=== PATIENT | male | born 1960 | race Caucasian/White ===

== ENCOUNTER 2022-01-24 08:32 | Inpatient (IN) | payer BC, SELFPAY ==
[~2022-01-24] VITALS: Ht 172.7 cm; Wt 72.4 kg
[~2022-01-24 08:32] MED LIST: FOLI1TAB PO; LOPR50TA OR; LORA1TAB OR; MULTIVIT; PROP10TAB PO; THERGRAN PO; THIA100T PO
[2022-01-24] MEDS ORDERED: HEPARIN SOD (PORCINE) 5000UNITS/ML 1ML VIAL/SYRINGE SC SCH (09:00)
[2022-01-24] MEDS ORDERED: NS 1,000 ML IV ONE ×2 (09:00→13:40)
[2022-01-24] MEDS: THIAMINE 100 MG TAB PO SCH ×2 (09:00→09:24)
[2022-01-24] MEDS ORDERED: OXAZEPAM 15MG CAP PO ONE (09:00)
[2022-01-24] MEDS: MULTIVITAMINS/MINERALS THERAP 1 TAB PO SCH ×2 (09:00→09:25)
[2022-01-24] MEDS: FOLIC ACID 1MG TAB PO SCH ×2 (09:00→09:25)
[2022-01-24] MEDS ORDERED: LORazepam 2 MG TAB PO PRN (09:05)
[2022-01-24 09:13] LABS: BASO % 0.3 % (0.0-1.0); EOS % 0.3 % (0.0-3.0); HEMOGLOBIN 12.7 g/dl (13.5-17.5); LYMPH # 0.7 10^3/uL (1.5-5.0); LYMPH % 11.3 % (24.0-44.0); MEAN CORPUSCULAR HEMOGLOBIN 33.9 pg (27.0-33.0); MEAN CORPUSCULAR HGB CONC 35.3 g/dl (32.0-36.5); MONO # 0.5 10^3/uL (0.0-0.8); MONO % 8.4 % (2.0-8.0); NEUTROPHILS % 79.1 % (36.0-66.0); PLATELET COUNT, AUTOMATED 142 10^3/uL (150-450); RED BLOOD COUNT 3.75 10^6/uL (4.30-6.10); WHITE BLOOD COUNT 6.3 10^3/uL (4.0-10.0)
[2022-01-24] MEDS ORDERED: levETIRAcetam INJection 1,000 MG in D5W 100 ML IV ONE (09:20)
[2022-01-24 09:24] LABS: INR 0.87
[2022-01-24] MEDS ORDERED: LABETALOL 100MG/20ML VIAL IV STA (09:27)
[2022-01-24] MEDS ORDERED: LORazepam 2 MG/ML VIAL IV STA (09:31)
[2022-01-24 10:13] LABS: ALBUMIN 3.9 G/DL (3.2-5.2); ALT/SGPT 104 U/L (7.0-40); BILIRUBIN,DIRECT 0.4 MG/DL (<0.4); BLOOD UREA NITROGEN < 5 MG/DL (9-23); CALCIUM LEVEL 9.2 MG/DL (8.3-10.6); CARBON DIOXIDE LEVEL 23 MMOL/L (20-31); CHLORIDE LEVEL 88 MMOL/L (98-107); CREATININE FOR GFR 0.49 MG/DL (0.70-1.30); ETHYL ALCOHOL (ETHANOL) 0.025 % (0.000-0.010); GLOMERULAR FILTRATION RATE > 60.0 (>49); GLUCOSE, FASTING 144 MG/DL (74-106); POTASSIUM SERUM 2.2 MMOL/L (3.5-5.1); SODIUM LEVEL 132 MMOL/L (136-145); TOTAL PROTEIN 6.7 G/DL (5.7-8.2)
[2022-01-24] MEDS ORDERED: KCL 10MEQ/100ML SWI (KRUN) 10 MEQ in IV 1 EA IV ONE (10:15)
[2022-01-24 10:32] LABS: MAGNESIUM LEVEL 1.2 MG/DL (1.8-2.4)
[2022-01-24] MEDS ORDERED: MAG SULF 1GM/100ML (MAG RUN) 1 GM in IV 1 EA IV ONE ×2 (10:50→11:35)
[2022-01-24 11:24] LABS: RSV AMPLIFICATION NEGATIVE (NEGATIVE)
[2022-01-24] MEDS: KCL 10MEQ/100ML SWI (KRUN) 10 MEQ in IV 1 EA IV SCH ×6 (11:51→23:35)
[2022-01-24] MEDS ORDERED: ISOVUE-370 76% 100ML VIAL As Ordered ONE (12:08)
[2022-01-24] MEDS ORDERED: GLUCOSE 4GM CHEW TABLET PO PRN (12:15)
[2022-01-24] MEDS ORDERED: GLUCAGON INJ 1MG VIAL SC PRN (12:15)
[2022-01-24] MEDS ORDERED: DEXTROSE 50% 50 ML SYRINGE IV PRN (12:15)
[2022-01-24 13:30] LABS: HEMOGLOBIN A1c 5.1 % (4.0-6.0)
[2022-01-24] MEDS ORDERED: MULTIVITAMIN -ADULT INJECTION 10 ML, THIAMINE INJection 100 MG, FOLIC ACID 1 MG in NS 1... IV ONE (14:00)
[2022-01-24 14:02] LABS: CHOLESTEROL LEVEL 144 MG/DL (<200); CHOLESTEROL RISK RATIO 2.13 (<5); FERRITIN 2314.8 NG/ML (10.5-307.3); HDL CHOLESTEROL 67.5 MG/DL (>40); IRON (FE) 83 UG/DL (65-175); LDL CHOLESTEROL 62.3 MG/DL (<100); NON-HDL-C 77 MG/DL; PERCENT SATURATION 41.3 % (19.7-50.0); TOTAL IRON BINDING CAPACITY 201 UG/DL (250-425); TRIGLYCERIDES LEVEL 71 MG/DL (<150); VITAMIN B12 LEVEL > 2000 PG/ML (211-911)
[2022-01-24 14:14] LABS: FOLATE > 24.00 NG/ML (>5.4)
[2022-01-24] MEDS: LORazepam 2 MG TAB PO PRN (15:25)
[2022-01-24 15:47] VITALS: BP 120/58
[2022-01-24] MEDS ORDERED: VITA200012 PO (15:50)
[2022-01-24] MEDS ORDERED: CVS5000S2 PO (15:50)
[2022-01-24] MEDS ORDERED: B COCAP4 PO (15:50)
[2022-01-24] MEDS ORDERED: MAGN200T PO (15:50)
[2022-01-24] MEDS ORDERED: ZINC50TA14 PO (15:50)
[2022-01-24] MEDS ORDERED: FOLI800C PO (15:50)
[2022-01-24] MEDS ORDERED: SUPECAP7 PO (15:52)
[2022-01-24] MEDS ORDERED: CENT1TAB2 PO (15:52)
[2022-01-24] MEDS ORDERED: MED REC COMMENT (15:54)
[2022-01-24] MEDS ORDERED: HOME MED LIST COMPLETE! XX SCH ×2 (15:55)
[2022-01-24 17:11] LABS: BLOOD UREA NITROGEN 6 MG/DL (9-23); CALCIUM LEVEL 7.5 MG/DL (8.3-10.6); CARBON DIOXIDE LEVEL 26 MMOL/L (20-31); CHLORIDE LEVEL 96 MMOL/L (98-107); CREATININE FOR GFR 0.43 MG/DL (0.70-1.30); GLOMERULAR FILTRATION RATE > 60.0 (>49); GLUCOSE, FASTING 112 MG/DL (74-106); MAGNESIUM LEVEL 1.6 MG/DL (1.8-2.4); PHOSPHORUS LEVEL 1.6 MG/DL (2.4-5.1); POTASSIUM SERUM 2.8 MMOL/L (3.5-5.1); SODIUM LEVEL 133 MMOL/L (136-145)
[2022-01-24 18:29] VITALS: BP 103/63
[2022-01-24] MEDS: MAG SULF 1GM/100ML (MAG RUN) 1 GM in IV 1 EA IV SCH ×2 (18:56→20:59)
[2022-01-24 20:39] VITALS: BP 132/68
[2022-01-24 20:41] VITALS: BP 132/68
[2022-01-24] MEDS ORDERED: THIAMINE 100 MG TAB PO SCH (21:00)
[2022-01-24] MEDS: ENOXAPARIN 40MG/0.4ML SYRINGE (J1650 PER 10MG) SC SCH (21:18)
[2022-01-24 21:22] LABS: APPEARANCE, URINE MANUAL CLEAR (CLEAR); COLOR, URINE MANUAL YELLOW (YELLOW)
[2022-01-24 21:23] LABS: BILIRUBIN, URINE MANUAL NEGATIVE (NEGATIVE); BLOOD URINE MANUAL NEGATIVE (NEGATIVE); GLUCOSE, URINE (UA) MANUAL NEGATIVE (NEGATIVE); KETONE, URINE MANUAL NEGATIVE (NEGATIVE); LEUKOCYTE ESTERASE, URINE MAN NEGATIVE (NEGATIVE); NITRITE, URINE MANUAL NEGATIVE (NEGATIVE); PROTEIN, URINE MANUAL NEGATIVE (NEGATIVE); SPECIFIC GRAVITY,URINE MANUAL 1.005 (1.002-1.035); UROBILINOGEN, URINE MANUAL NORMAL (NORMAL)
[2022-01-24] MEDS: levETIRAcetam INJection 500 MG in D5W MINI-BAG PLUS 100 ML IV SCH (21:25)
[2022-01-24 21:50] LABS: AMPHETAMINES LEVEL URINE NEGATIVE (NEGATIVE); BARBITURATES URINE NEGATIVE (NEGATIVE); BENZODIAZEPINES URINE NEGATIVE (NEGATIVE); CANNABINOIDS URINE NEGATIVE (NEGATIVE); COCAINE METABOLITE URINE NEGATIVE (NEGATIVE); METHADONE URINE NEGATIVE (NEGATIVE); OPIATES URINE NEGATIVE (NEGATIVE); PHENCYCLIDINE URINE NEGATIVE (NEGATIVE)
[2022-01-24] MEDS ORDERED: SODIUM PHOSPHATE INJ 20 MMOL in D5W 250 ML IV ONE (22:00)
[2022-01-25] VITALS (10 sets, daily range): BP systolic 118–170; BP diastolic 68–83
[2022-01-25] MEDS: KCL 10MEQ/100ML SWI (KRUN) 10 MEQ in IV 1 EA IV SCH ×8 (00:50→15:30)
[2022-01-25 08:18] LABS: HEMATOCRIT 31.3 % (42.0-52.0); HEMOGLOBIN 10.8 g/dl (13.5-17.5); MEAN CORPUSCULAR HEMOGLOBIN 34.2 pg (27.0-33.0); MEAN CORPUSCULAR HGB CONC 34.5 g/dl (32.0-36.5); MEAN CORPUSCULAR VOLUME 99.1 fl (80.0-96.0); PLATELET COUNT, AUTOMATED 101 10^3/uL (150-450); RED BLOOD COUNT 3.16 10^6/uL (4.30-6.10); WHITE BLOOD COUNT 5.1 10^3/uL (4.0-10.0)
[2022-01-25] MEDS: levETIRAcetam INJection 500 MG in D5W MINI-BAG PLUS 100 ML IV SCH (08:54)
[2022-01-25] MEDS ORDERED: MULTIVITAMINS/MINERALS THERAP 1 TAB PO SCH (09:00)
[2022-01-25] MEDS ORDERED: FOLIC ACID 1MG TAB PO SCH (09:00)
[2022-01-25 09:10] LABS: BLOOD UREA NITROGEN < 5 MG/DL (9-23); CALCIUM LEVEL 7.4 MG/DL (8.3-10.6); CARBON DIOXIDE LEVEL 28 MMOL/L (20-31); CHLORIDE LEVEL 99 MMOL/L (98-107); CREATININE FOR GFR 0.43 MG/DL (0.70-1.30); GLOMERULAR FILTRATION RATE > 60.0 (>49); GLUCOSE, FASTING 104 MG/DL (74-106); MAGNESIUM LEVEL 1.9 MG/DL (1.8-2.4); PHOSPHORUS LEVEL 2.5 MG/DL (2.4-5.1); POTASSIUM SERUM 2.9 MMOL/L (3.5-5.1); SODIUM LEVEL 136 MMOL/L (136-145)
[2022-01-25] MEDS ORDERED: MAGNESIUM OXIDE 400MG TAB (MAG-OX) PO ONE (09:45)
[2022-01-25] MEDS ORDERED: POTASSIUM CHLORIDE 10MEQ SR TABLET PO ONE ×2 (09:45→17:00)
[2022-01-25] MEDS ORDERED: FOLIC ACID 1MG TAB PO ONE (09:45)
[2022-01-25] MEDS: MULTIVITAMINS/MINERALS THERAP 1 TAB PO SCH (10:51)
[2022-01-25] MEDS: THIAMINE 100 MG TAB PO SCH (10:57)
[2022-01-25 11:11] LABS: HEPATITIS B CORE ANTIBODY IGM NEGATIVE (NEGATIVE); HEPATITIS B SURFACE ANTIGEN NEGATIVE (NEGATIVE); HEPATITIS C VIRUS ABY INDEX 0.1 INDEX (<0.8)
[2022-01-25] MEDS: PROPRANOLOL 10 MG TAB PO SCH ×2 (11:49→20:54)
[2022-01-25 13:11] LABS: BLOOD UREA NITROGEN < 5 MG/DL (9-23); CALCIUM LEVEL 7.6 MG/DL (8.3-10.6); CARBON DIOXIDE LEVEL 28 MMOL/L (20-31); CHLORIDE LEVEL 99 MMOL/L (98-107); CREATININE FOR GFR 0.45 MG/DL (0.70-1.30); GLOMERULAR FILTRATION RATE > 60.0 (>49); GLUCOSE, FASTING 103 MG/DL (74-106); POTASSIUM SERUM 3.1 MMOL/L (3.5-5.1); SODIUM LEVEL 137 MMOL/L (136-145)
[2022-01-25] MEDS: LORazepam 2 MG TAB PO PRN ×3 (20:00→23:30)
[2022-01-25] MEDS: ENOXAPARIN 40MG/0.4ML SYRINGE (J1650 PER 10MG) SC SCH (20:54)
[2022-01-25] MEDS: levETIRAcetam 250MG TABLET (KEPPRA) PO SCH (20:54)
[2022-01-26] VITALS (13 sets, daily range): BP systolic 119–167; BP diastolic 66–93
[2022-01-26] MEDS ORDERED: LORazepam 2 MG/ML VIAL IV STA ×3 (00:48→06:01)
[2022-01-26] MEDS ORDERED: HALOPERIDOL 5MG/ML VIAL (J1630 PER 1) IM STA (03:04)
[2022-01-26] MEDS ORDERED: HALOPERIDOL 5MG/ML VIAL (J1630 PER 1) As Ordered ONE (03:23)
[2022-01-26 04:40] LABS: HEMATOCRIT 31.6 % (42.0-52.0); HEMOGLOBIN 10.9 g/dl (13.5-17.5); MEAN CORPUSCULAR HEMOGLOBIN 34.2 pg (27.0-33.0); MEAN CORPUSCULAR HGB CONC 34.5 g/dl (32.0-36.5); MEAN CORPUSCULAR VOLUME 99.1 fl (80.0-96.0); PLATELET COUNT, AUTOMATED 111 10^3/uL (150-450); RED BLOOD COUNT 3.19 10^6/uL (4.30-6.10); WHITE BLOOD COUNT 5.4 10^3/uL (4.0-10.0)
[2022-01-26 05:57] LABS: BLOOD UREA NITROGEN < 5 MG/DL (9-23); CARBON DIOXIDE LEVEL 28 MMOL/L (20-31); CHLORIDE LEVEL 99 MMOL/L (98-107); CREATININE FOR GFR 0.49 MG/DL (0.70-1.30); GLOMERULAR FILTRATION RATE > 60.0 (>49); GLUCOSE, FASTING 105 MG/DL (74-106); MAGNESIUM LEVEL 1.6 MG/DL (1.8-2.4); PHOSPHORUS LEVEL 1.6 MG/DL (2.4-5.1); POTASSIUM SERUM 3.7 MMOL/L (3.5-5.1); SODIUM LEVEL 136 MMOL/L (136-145)
[2022-01-26 06:16] LABS: ABG BASE EXCESS 2.6 (-2.0-2.0); ABG HCO3 26.1 MEQ/L (22.0-26.0); ABG O2 SATURATION 95.5 % (95.0-99.0); ABG PARTIAL PRESSURE CO2 36.7 mmHg (35.0-45.0); ABG PARTIAL PRESSURE O2 74.9 mmHg (75.0-100.0); ABG STANDARD HCO3 26.7 MEQ/L (22.0-26.0); ABG TOTAL CO2 27.2 MEQ/L (23.0-31.0)
[2022-01-26] MEDS ORDERED: NEUTRA-PHOS 1.5 GM PACKET PO ONE (07:30)
[2022-01-26] MEDS ORDERED: MAG SULF 1GM/100ML (MAG RUN) 1 GM in IV 1 EA IV ONE (08:00)
[2022-01-26] MEDS: levETIRAcetam 250MG TABLET (KEPPRA) PO SCH ×2 (10:18→21:18)
[2022-01-26] MEDS: PROPRANOLOL 10 MG TAB PO SCH ×2 (10:19→21:19)
[2022-01-26] MEDS: MULTIVITAMINS/MINERALS THERAP 1 TAB PO SCH (10:24)
[2022-01-26] MEDS: THIAMINE 100 MG TAB PO SCH (10:24)
[2022-01-26] MEDS: chlordiazePOXIDE 25 MG CAP PO SCH ×3 (11:40→21:18)
[2022-01-26] MEDS: LORazepam 2 MG TAB PO PRN ×2 (17:03→21:19)
[2022-01-26] MEDS: ENOXAPARIN 40MG/0.4ML SYRINGE (J1650 PER 10MG) SC SCH (21:18)
[2022-01-27] VITALS (9 sets, daily range): BP systolic 90–136; BP diastolic 61–90
[2022-01-27] MEDS: LORazepam 2 MG TAB PO PRN (05:27)
[2022-01-27] MEDS: THIAMINE 100 MG TAB PO SCH (08:27)
[2022-01-27] MEDS: levETIRAcetam 250MG TABLET (KEPPRA) PO SCH ×2 (08:27→20:19)
[2022-01-27] MEDS: MULTIVITAMINS/MINERALS THERAP 1 TAB PO SCH (08:27)
[2022-01-27] MEDS: chlordiazePOXIDE 25 MG CAP PO SCH ×3 (08:28→20:18)
[2022-01-27] MEDS: PROPRANOLOL 10 MG TAB PO SCH ×2 (08:28→20:20)
[2022-01-27 08:49] LABS: BASO % 0.4 % (0.0-1.0); EOS # 0.1 10^3/uL (0.0-0.5); EOS % 0.9 % (0.0-3.0); HEMATOCRIT 35.7 % (42.0-52.0); HEMOGLOBIN 12.2 g/dl (13.5-17.5); LYMPH # 0.7 10^3/uL (1.5-5.0); MEAN CORPUSCULAR HEMOGLOBIN 33.8 pg (27.0-33.0); MEAN CORPUSCULAR HGB CONC 34.2 g/dl (32.0-36.5); MEAN CORPUSCULAR VOLUME 98.9 fl (80.0-96.0); MONO # 0.8 10^3/uL (0.0-0.8); MONO % 13.9 % (2.0-8.0); NEUTROPHILS # 3.9 10^3/uL (1.5-8.5); NEUTROPHILS % 71.4 % (36.0-66.0); PLATELET COUNT, AUTOMATED 175 10^3/uL (150-450); RED BLOOD COUNT 3.61 10^6/uL (4.30-6.10); WHITE BLOOD COUNT 5.5 10^3/uL (4.0-10.0)
[2022-01-27 10:00] LABS: BLOOD UREA NITROGEN 6 MG/DL (9-23); CALCIUM LEVEL 8.8 MG/DL (8.3-10.6); CARBON DIOXIDE LEVEL 26 MMOL/L (20-31); CHLORIDE LEVEL 96 MMOL/L (98-107); CREATININE FOR GFR 0.47 MG/DL (0.70-1.30); GLOMERULAR FILTRATION RATE > 60.0 (>49); GLUCOSE, FASTING 126 MG/DL (74-106); MAGNESIUM LEVEL 1.6 MG/DL (1.8-2.4); POTASSIUM SERUM 3.5 MMOL/L (3.5-5.1); SODIUM LEVEL 135 MMOL/L (136-145)
[2022-01-27] MEDS ORDERED: POTASSIUM CHLORIDE 10MEQ SR TABLET PO ONE (12:30)
[2022-01-27] MEDS ORDERED: MAG SULF 1GM/100ML (MAG RUN) 1 GM in IV 1 EA IV ONE (13:00)
[2022-01-27] MEDS: MAGNESIUM GLUCONATE 500 MG TAB PO SCH ×2 (15:05→20:19)
[2022-01-27] MEDS: ENOXAPARIN 40MG/0.4ML SYRINGE (J1650 PER 10MG) SC SCH (20:18)
[2022-01-28] VITALS: BP 115/74
[2022-01-28 04:00] VITALS: BP 107/72
[2022-01-28 04:35] LABS: HEMATOCRIT 35.1 % (42.0-52.0); HEMOGLOBIN 11.9 g/dl (13.5-17.5); MEAN CORPUSCULAR HEMOGLOBIN 33.8 pg (27.0-33.0); MEAN CORPUSCULAR HGB CONC 33.9 g/dl (32.0-36.5); MEAN CORPUSCULAR VOLUME 99.7 fl (80.0-96.0); PLATELET COUNT, AUTOMATED 196 10^3/uL (150-450); RED BLOOD COUNT 3.52 10^6/uL (4.30-6.10); WHITE BLOOD COUNT 4.1 10^3/uL (4.0-10.0)
[2022-01-28 05:19] LABS: PHOSPHORUS LEVEL 5.1 MG/DL (2.4-5.1)
[2022-01-28] MEDS ORDERED: chlordiazePOXIDE 25 MG CAP PO SCH (06:10)
[2022-01-28 07:44] VITALS: BP 114/94
[2022-01-28 07:56] LABS: BLOOD UREA NITROGEN 12 MG/DL (9-23); CALCIUM LEVEL 8.9 MG/DL (8.3-10.6); CARBON DIOXIDE LEVEL 25 MMOL/L (20-31); CHLORIDE LEVEL 96 MMOL/L (98-107); CREATININE FOR GFR 0.66 MG/DL (0.70-1.30); GLOMERULAR FILTRATION RATE > 60.0 (>49); GLUCOSE, FASTING 114 MG/DL (74-106); POTASSIUM SERUM 3.6 MMOL/L (3.5-5.1); SODIUM LEVEL 134 MMOL/L (136-145)
[2022-01-28 08:00] VITALS: BP 114/94
[2022-01-28 08:43] VITALS: BP 114/94
[2022-01-28] MEDS: levETIRAcetam 250MG TABLET (KEPPRA) PO SCH (08:43)
[2022-01-28] MEDS: THIAMINE 100 MG TAB PO SCH (08:43)
[2022-01-28] MEDS: MULTIVITAMINS/MINERALS THERAP 1 TAB PO SCH (08:43)
[2022-01-28] MEDS: PROPRANOLOL 10 MG TAB PO SCH (08:43)
[2022-01-28] MEDS: MAGNESIUM GLUCONATE 500 MG TAB PO SCH (08:43)
[2022-01-28] MEDS ORDERED: ZOLO25TA PO (09:41)
== END 2022-01-28 12:37 | disposition home or self-care (01) | DRG 775 ==
LOC: EDBD 08:32 → M ED 08:32 → M ED INP 12:02 → ENRESERV 14:03 → M PCU 14:46
PROVIDERS: ADMIT Internal Medicine; ATTEND Internal Medicine
DX: F10.231 Alcohol dependence with withdrawal delirium (principal); G92.8 Other toxic encephalopathy; G93.41 Metabolic encephalopathy; D61.818 Other pancytopenia; R16.0 Hepatomegaly, not elsewhere classified; D69.6 Thrombocytopenia, unspecified; E87.20 Acidosis, unspecified; R56.9 Unspecified convulsions; J43.9 Emphysema, unspecified; E83.42 Hypomagnesemia; E83.39 Other disorders of phosphorus metabolism; K76.0 Fatty (change of) liver, not elsewhere classified; E87.6 Hypokalemia; I16.0 Hypertensive urgency; F17.220 Nicotine dependence, chewing tobacco, uncomplicated; R74.01 Elevation of levels of liver transaminase levels; I10 Essential (primary) hypertension; Z20.822 Contact with and (suspected) exposure to COVID-19; Z79.899 Other long term (current) drug therapy

== ENCOUNTER 2022-02-24 06:38 | Emergency (ER) | payer SELFPAY ==
[~2022-02-24] VITALS: Ht 177.8 cm; Wt 69.9 kg
[~2022-02-24 06:38] MED LIST changes: +B COCAP4 PO; +CENT1TAB2 PO; +CVS5000S2 PO; +FOLI800C PO; +MAGN200T PO; +MED REC COMMENT; +SUPECAP7 PO; +VITA200012 PO; +ZINC50TA14 PO; +ZOLO25TA PO
[2022-02-24] MEDS ORDERED: OXAZEPAM 15MG CAP PO ONE (07:20)
[2022-02-24] MEDS ORDERED: OXAZ10CA3 PO (09:43)
[2022-02-24 10:12] VITALS: BP 136/80
[2022-02-24] MEDS ORDERED: IBUPROFEN 600MG TAB PO ONE (12:50)
== END 2022-02-24 10:24 | disposition home or self-care (01) ==
LOC: M ED 06:38 → EDBD 06:38 → M ED 10:24
DX: F10.231 Alcohol dependence with withdrawal delirium (principal); I10 Essential (primary) hypertension; Z79.811 Long term (current) use of aromatase inhibitors; Z79.899 Other long term (current) drug therapy

== ENCOUNTER 2022-03-20 13:58 | Emergency (ER) | payer BC, SELFPAY ==
[~2022-03-20] VITALS: Ht 170.2 cm; Wt 73.6 kg
[~2022-03-20 13:58] MED LIST changes: +OXAZ10CA3 PO
[2022-03-20] MEDS ORDERED: NS 500 ML IV ONE (14:40)
[2022-03-20] MEDS ORDERED: OXAZEPAM 15MG CAP PO ONE (14:40)
[2022-03-20 15:29] VITALS: BP 175/95
[2022-03-20] MEDS ORDERED: atenoloL 25 MG TAB PO ONE (16:30)
[2022-03-20] MEDS ORDERED: ATEN25TA PO (16:35)
[2022-03-20 16:54] VITALS: BP 175/95
[2022-03-20] MEDS ORDERED: OXAZ10CA3 PO (21:23)
== END 2022-03-20 17:25 | disposition home or self-care (01) ==
LOC: M ED 13:58
DX: F10.130 Alcohol abuse with withdrawal, uncomplicated (principal); I10 Essential (primary) hypertension; J44.9 Chronic obstructive pulmonary disease, unspecified; Z79.899 Other long term (current) drug therapy

== ENCOUNTER 2022-04-14 19:50 | Inpatient (IN) | payer BC ==
[~2022-04-14] VITALS: Ht 160 cm; Wt 78.0 kg
[~2022-04-14 19:50] MED LIST changes: +ATEN25TA PO
[2022-04-14] MEDS ORDERED: NS 1,000 ML IV ONE ×2 (20:05→20:35)
[2022-04-14] MEDS ORDERED: NOREPINEPHRINE 4MG IN D5 250ML 4 MG in IV 1 EA IV SCH ×2 (20:05)
[2022-04-14] MEDS ORDERED: EPINEPHrine 1MG/10ML SYRINGE 1.5IN As Ordered ONE (20:10)
[2022-04-14 20:20] LABS: BASO % 0.6 % (0.0-1.0); EOS % 0.8 % (0.0-3.0); HEMATOCRIT 35.1 % (42.0-52.0); HEMOGLOBIN 10.9 g/dl (13.5-17.5); LYMPH # 3.4 10^3/uL (1.5-5.0); LYMPH % 66.5 % (24.0-44.0); MEAN CORPUSCULAR HEMOGLOBIN 34.3 pg (27.0-33.0); MEAN CORPUSCULAR HGB CONC 31.1 g/dl (32.0-36.5); MEAN CORPUSCULAR VOLUME 110.4 fl (80.0-96.0); MONO # 0.4 10^3/uL (0.0-0.8); MONO % 8.1 % (2.0-8.0); NEUTROPHILS # 1.1 10^3/uL (1.5-8.5); NEUTROPHILS % 21.6 % (36.0-66.0); RED BLOOD COUNT 3.18 10^6/uL (4.30-6.10)
[2022-04-14 20:30] LABS: INR 1.21; PROTHROMBIN TIME 15.6 SECONDS (12.5-14.5)
[2022-04-14] MEDS ORDERED: ISOVUE-370 76% 100ML VIAL As Ordered ONE (20:37)
[2022-04-14 20:45] LABS: CK-MB VALUE MASS 1.4 NG/ML (<3.6); LIPASE 59 U/L (12-53)
[2022-04-14 20:46] LABS: PLATELET COUNT, AUTOMATED 75 10^3/uL (150-450)
[2022-04-14 20:47] LABS: ALBUMIN 2.8 G/DL (3.2-5.2); ALKALINE PHOSPHATASE 116 U/L (46-116); ALT/SGPT 84 U/L (7.0-40); AST/SGOT 182 U/L (<34); BILIRUBIN,DIRECT 0.3 MG/DL (<0.4); BILIRUBIN,TOTAL 0.7 MG/DL (0.3-1.2); TOTAL PROTEIN 5.2 G/DL (5.7-8.2)
[2022-04-14] MEDS ORDERED: PIPERACILLIN/TAZOBACTAM SOD 4.5 GM in D5W MINI-BAG PLUS 50 ML IV ONE (21:00)
[2022-04-14 21:02] LABS: ACETAMINOPHEN LEVEL < 2.0 UG/ML (10.0-20.0); SALICYLATE LEVEL < 3.0 MG/DL (<30)
[2022-04-14 21:05] LABS: CPK CREATINE PHOSPHOKINASE 140 U/L (46-171)
[2022-04-14] MEDS ORDERED: levETIRAcetam INJection 1,500 MG in D5W 100 ML IV ONE (21:05)
[2022-04-14] MEDS ORDERED: MIDAZOLAM 100MG/100ML-0.9%NACL 100 MG in IV 1 EA IV SCH (21:50)
[2022-04-14 21:54] LABS: AMPHETAMINES LEVEL URINE NEGATIVE (NEGATIVE); BARBITURATES URINE NEGATIVE (NEGATIVE); BENZODIAZEPINES URINE NEGATIVE (NEGATIVE); CANNABINOIDS URINE NEGATIVE (NEGATIVE); COCAINE METABOLITE URINE NEGATIVE (NEGATIVE); METHADONE URINE NEGATIVE (NEGATIVE); OPIATES URINE NEGATIVE (NEGATIVE); PHENCYCLIDINE URINE NEGATIVE (NEGATIVE)
[2022-04-14] MEDS ORDERED: PROPOFOL 1,000 MG/100 ML VIAL As Ordered ONE (22:33)
[2022-04-14] MEDS ORDERED: propofoL 1,000 MG in IV 1 EA IV SCH (22:35)
[2022-04-14 22:46] LABS: MAGNESIUM LEVEL 1.8 MG/DL (1.8-2.4)
[2022-04-14 22:49] LABS: HEMOGLOBIN A1c 5.1 % (4.0-6.0)
[2022-04-14] MEDS ORDERED: ATEN25TA PO (23:16)
[2022-04-14] MEDS ORDERED: SERT25TA21 PO (23:16)
[2022-04-14] MEDS ORDERED: OXAZ10CA3 PO (23:16)
[2022-04-14] MEDS ORDERED: HOME MED LIST COMPLETE! XX SCH (23:20)
[2022-04-15] VITALS (28 sets, daily range): BP systolic 63–138; BP diastolic 47–99
[2022-04-15] MEDS ORDERED: NS 1,000 ML IV SCH (00:25)
[2022-04-15] MEDS ORDERED: INSULIN IV RATE CHANGE DOCUMENTATION ML/HR XX SCH (00:25)
[2022-04-15] MEDS ORDERED: ACETAMINOPHEN 650MG SUPP PR PRN (00:25)
[2022-04-15] MEDS: NOREPINEPHRINE 4MG IN D5 250ML 4 MG in IV 1 EA IV SCH ×6 (00:25→07:55)
[2022-04-15] MEDS: MIDAZOLAM 100MG/100ML-0.9%NACL 100 MG in IV 1 EA IV SCH ×2 (00:25→06:58)
[2022-04-15] MEDS ORDERED: INSULIN REGULAR IN 0.9 % NACL 100 UNIT in IV 1 EA IV SCH ×2 (00:25)
[2022-04-15] MEDS ORDERED: LACRILUBE (AKWA TEARS) OPHTH OINT 3.5GM OU PRN (00:25)
[2022-04-15 00:52] LABS: BASO % 0.1 % (0.0-1.0); EOS % 0.1 % (0.0-3.0); HEMATOCRIT 38.3 % (42.0-52.0); LYMPH # 0.5 10^3/uL (1.5-5.0); LYMPH % 6.5 % (24.0-44.0); MEAN CORPUSCULAR HEMOGLOBIN 33.9 pg (27.0-33.0); MEAN CORPUSCULAR HGB CONC 34.2 g/dl (32.0-36.5); MEAN CORPUSCULAR VOLUME 99.2 fl (80.0-96.0); MONO # 0.2 10^3/uL (0.0-0.8); NEUTROPHILS # 6.2 10^3/uL (1.5-8.5); NEUTROPHILS % 89.7 % (36.0-66.0); PLATELET COUNT, AUTOMATED 103 10^3/uL (150-450); RED BLOOD COUNT 3.86 10^6/uL (4.30-6.10); WHITE BLOOD COUNT 6.9 10^3/uL (4.0-10.0)
[2022-04-15] MEDS ORDERED: PANTOPRAZOLE 40MG VIAL IV ONE ×2 (01:00→08:05)
[2022-04-15 01:21] LABS: HEMOGLOBIN 13.1 g/dl (13.5-17.5); LIPASE 66 U/L (12-53)
[2022-04-15 01:22] LABS: AMYLASE 291 U/L (30-118)
[2022-04-15 01:50] LABS: INR 1.02; PROTHROMBIN TIME 13.6 SECONDS (12.5-14.5)
[2022-04-15 01:51] LABS: PARTIAL THROMBOPLASTIN TIME 30.6 SECONDS (24.8-34.2)
[2022-04-15 01:56] LABS: ALBUMIN 3.2 G/DL (3.2-5.2); ALKALINE PHOSPHATASE 209 U/L (46-116); ALT/SGPT 137 U/L (7.0-40); AST/SGOT 572 U/L (<34); BILIRUBIN,DIRECT 0.6 MG/DL (<0.4); BILIRUBIN,TOTAL 1.4 MG/DL (0.3-1.2); BLOOD UREA NITROGEN 10 MG/DL (9-23); CALCIUM LEVEL 7.2 MG/DL (8.3-10.6); CARBON DIOXIDE LEVEL 20 MMOL/L (20-31); CHLORIDE LEVEL 100 MMOL/L (98-107); CK-MB VALUE MASS 29.8 NG/ML (<3.6); CPK CREATINE PHOSPHOKINASE 1239 U/L (46-171); CREATININE FOR GFR 0.79 MG/DL (0.70-1.30); GLOMERULAR FILTRATION RATE > 60.0 (>49); GLUCOSE, FASTING 240 MG/DL (74-106); MAGNESIUM LEVEL 1.1 MG/DL (1.8-2.4); PHOSPHORUS LEVEL 3.8 MG/DL (2.4-5.1); SODIUM LEVEL 140 MMOL/L (136-145); TOTAL PROTEIN 5.9 G/DL (5.7-8.2)
[2022-04-15] MEDS ORDERED: THIAMINE 200MG 2ML VIAL IV ONE (02:00)
[2022-04-15] MEDS: PANTOPRAZOLE SODIUM 40 MG in D5W 50 ML IV SCH ×2 (02:00→06:57)
[2022-04-15 02:30] LABS: ABG BASE EXCESS -5.1 (-2.0-2.0); ABG HCO3 17.1 MEQ/L (22.0-26.0); ABG PARTIAL PRESSURE O2 183.4 mmHg (75.0-100.0); ABG STANDARD HCO3 20.4 MEQ/L (22.0-26.0); ABG TOTAL CO2 17.9 MEQ/L (23.0-31.0); ABG pH (ARTERIAL) 7.453 UNITS (7.350-7.450)
[2022-04-15] MEDS ORDERED: PIPERACILLIN/TAZOBACTAM SOD 4.5 GM in D5W MINI-BAG PLUS 50 ML IV SCH (03:00)
[2022-04-15] MEDS ORDERED: NS 500 ML IV ONE (04:00)
[2022-04-15] MEDS: KCL 20MEQ IN 100ML SWI (KRUN) 20 MEQ in IV 1 EA IV SCH ×6 (04:01→06:57)
[2022-04-15] MEDS ORDERED: propofoL 1,000 MG in IV 1 EA IV SCH (04:10)
[2022-04-15] MEDS ORDERED: GLUCAGON INJ 1MG VIAL SC PRN (04:40)
[2022-04-15] MEDS ORDERED: DEXTROSE 50% 50ML SYRINGE IV PRN (04:40)
[2022-04-15] MEDS ORDERED: GLUCOSE 4GM CHEW TABLET PO PRN (04:40)
[2022-04-15 04:50] LABS: BLOOD UREA NITROGEN 9 MG/DL (9-23); CALCIUM LEVEL 7.3 MG/DL (8.3-10.6); CARBON DIOXIDE LEVEL 24 MMOL/L (20-31); CHLORIDE LEVEL 102 MMOL/L (98-107); CREATININE FOR GFR 0.91 MG/DL (0.70-1.30); GLOMERULAR FILTRATION RATE > 60.0 (>49); GLUCOSE, FASTING 158 MG/DL (74-106); MAGNESIUM LEVEL 1.1 MG/DL (1.8-2.4); PHOSPHORUS LEVEL 2.1 MG/DL (2.4-5.1); POTASSIUM SERUM 2.7 MMOL/L (3.5-5.1); SODIUM LEVEL 143 MMOL/L (136-145)
[2022-04-15 05:18] LABS: ABG BASE EXCESS -2.8 (-2.0-2.0); ABG HCO3 19.8 MEQ/L (22.0-26.0); ABG O2 SATURATION 99.4 % (95.0-99.0); ABG PARTIAL PRESSURE CO2 28.8 mmHg (35.0-45.0); ABG PARTIAL PRESSURE O2 208.1 mmHg (75.0-100.0); ABG STANDARD HCO3 22.2 MEQ/L (22.0-26.0); ABG TOTAL CO2 20.7 MEQ/L (23.0-31.0); ABG pH (ARTERIAL) 7.456 UNITS (7.350-7.450)
[2022-04-15] MEDS ORDERED: INSULIN LISPRO (NovoLOG) PER UNIT SC SCH (06:00)
[2022-04-15] MEDS ORDERED: VANCOMYCIN ORAL SOL 250MG/5ML ORAL SYRINGE PO SCH (06:00)
[2022-04-15] MEDS ORDERED: fentaNYL CITRATE/NaCl 1,000 MCG in IV 1 EA IV SCH (06:10)
[2022-04-15] MEDS ORDERED: FENTANYL DRIP LOCK BOX KEY 1 EACH XX PRN (06:10)
[2022-04-15] MEDS ORDERED: DOPamine 400 MG/500 ML BAG IN D5W (800MCG/ML) ONE (06:36)
[2022-04-15] MEDS ORDERED: SODIUM BICARBONATE 8.4% INJ 50ML SYRINGE ONE (06:36)
[2022-04-15] MEDS ORDERED: EPINEPHrine 1MG/10ML SYRINGE 1.5IN ONE (06:36)
[2022-04-15] MEDS ORDERED: VASOPRESSIN INJ 20 UNITS in NS 499 ML IV STA (08:09)
[2022-04-15] MEDS ORDERED: VASOPRESSIN INJ 20UNITS/ML 1ML VIAL As Ordered ONE (08:11)
[2022-04-15] MEDS ORDERED: VASOPRESSIN INJ 20 UNITS in NS 499 ML IV SCH (08:20)
[2022-04-15] MEDS ORDERED: THIAMINE 200MG 2ML VIAL IM SCH (09:00)
[2022-04-15] MEDS ORDERED: levETIRAcetam INJection 1,000 MG in D5W 100 ML IV SCH (09:00)
[2022-04-15] MEDS ORDERED: LACRILUBE (AKWA TEARS) OPHTH OINT 3.5GM OU SCH (09:00)
[2022-04-15] MEDS ORDERED: CHLORHEXIDINE GLUCONATE 0.12 % 15ML UDC (PERIDEX ORAL RINSE) MT SCH (09:00)
== END 2022-04-15 08:45 | disposition short-term general hospital (02) | DRG 190 ==
LOC: M ED 19:50 → EDBD 19:50 → M ED INP 23:33 → M ICU 04-15 00:45
PROVIDERS: ADMIT Internal Medicine Critical Care Medicine; ATTEND Internal Medicine Critical Care Medicine
PROC: 0BH17EZ Insertion of Endotracheal Airway into Trachea, Via Natural or Artificial Opening (ICD-10-PCS; principal; 2022-04-14)
PROC: 5A1935Z Respiratory Ventilation, Less than 24 Consecutive Hours (ICD-10-PCS; 2022-04-14)
PROC: B246ZZZ Ultrasonography of Right and Left Heart (ICD-10-PCS; 2022-04-15)
DX: I21.4 Non-ST elevation (NSTEMI) myocardial infarction (principal); I46.9 Cardiac arrest, cause unspecified; J69.0 Pneumonitis due to inhalation of food and vomit; E87.20 Acidosis, unspecified; A04.72 Enterocolitis due to Clostridium difficile, not specified as recurrent; D69.6 Thrombocytopenia, unspecified; K92.2 Gastrointestinal hemorrhage, unspecified; R19.7 Diarrhea, unspecified; E87.6 Hypokalemia; R74.01 Elevation of levels of liver transaminase levels; F17.220 Nicotine dependence, chewing tobacco, uncomplicated; F10.20 Alcohol dependence, uncomplicated; G40.909 Epilepsy, unspecified, not intractable, without status epilepticus; R73.9 Hyperglycemia, unspecified; Z20.822 Contact with and (suspected) exposure to COVID-19; Z79.899 Other long term (current) drug therapy